=== PATIENT | male | born 1965 | race Hispanic/Latino ===

== ENCOUNTER 2020-12-07 19:25 | Emergency (ER) | payer BC ==
[~2020-12-07] VITALS: Ht 172.7 cm; Wt 85.7 kg
[2020-12-07] MEDS ORDERED: SODIUM CHLORIDE 0.9% 50ML 50 ML ONE (21:55)
[2020-12-07] MEDS ORDERED: IOPAMIDOL 370 MG/ML 200 ML INFUS..BTL INJ ONE (21:55)
== END 2020-12-07 23:00 | disposition home or self-care (01) ==
LOC: FSED 19:45
DX: R10.32 Left lower quadrant pain (principal); R91.1 Solitary pulmonary nodule
CPT/HCPCS: 74177; 80048; 81003; 85025; 99283; Q9967